=== PATIENT | male | born 1940 | race Caucasian/White ===

== ENCOUNTER 2019-11-02 21:37 | Observation (INO) | payer MEDICARE, MEDICAID, SELFPAY ==
--- NOTE | ~2019-11-02 | CT_ITS ---
EXAMINATION: CT brain wo con EXAM DATE: 11/02/2019 22:56 INDICATION: Fever. Altered mental status. TECHNIQUE: Spiral CT of the head was performed without contrast. Axial, coronal and sagittal images were reviewed. The dose-length product (DLP) for this examination was 908.00 mGy-cm. The exposure w as tailored according to patient size, and iterative reconstruction (ASIR) was used as additional dos e reduction technique. Comparison is made to prior examination from 05/16/2019. FINDINGS: Study is limited due to patient motion. There is no acute intraparenchymal hemorrhage. No evidence of intraparenchymal brain mass lesion. No evidence of acute infarction. Please note that initial head CT has limited sensitivity for small or acute infarctions. There is mild periventricular and subcortical hypodensity, nonspecific but probably related to small vessel ischemic disease. Th ere is mild to moderate prominence of the sulci and ventricles related to cerebral atrophy. There i s intracranial carotid arteriosclerosis. There are no extra-axial collections. There is no mass eff ect or midline shift. The orbits are unremarkable. Soft tissue is unremarkable. The visualized sin uses and mastoid air cells are well aerated. IMPRESSION: 1. Limited exam, but no acute hemorrhage suspected. 2. Chronic age related findings. Reviewed, dictated and finalized at location B. DER OPERATOR AUTOMATIC
--- NOTE | ~2019-11-02 | CT_ITS ---
EXAMINATION: CT pelvis w con EXAM DATE: 11/02/2019 22:57 INDICATION: Buttock sores. Fever. TECHNIQUE: Spiral CT pelvis w con was performed following intravenous injection of 100 mL Omnipaque 3 50. Axial, coronal and sagittal images were reviewed. The dose-length product (DLP) for this examin ation was 1531.92 mGy-cm. The exposure was tailored according to patient size (auto mA exposure cont rol), and iterative reconstruction (ASIR) was used as additional dose reduction technique. Comparison is made to prior examination from 11/15/2017. FINDINGS: There is a Vance catheter within a collapsed bladder. There are inguinal and pelvic lymph n odes with fatty rosalia, consistent with reactive etiology. There is moderate aortoiliac arterial sclero tic disease. Normal appendix. Bowel unremarkable. Portions of the upper thighs laterally were out of field of view and not imaged. Mild prepubic. Mild prepubic fat stranding, possible mild penis and scr otal, left medial thigh skin thickening, cellulitis? No abscess. There are no bony erosions identifie d. IMPRESSION: 1. Clinical correlation for possible penis/scrotal and inner thigh cellulitis. 2. Some reactive pelvic lymph nodes. Reviewed, dictated and finalized at location B. CTOR OF HEALTH EDUCATION
--- NOTE | ~2019-11-02 | XR_ITS ---
EXAMINATION: XR chest 2V DATE: 11/02/2019 22:39 INDICATION: Transient alteration of awareness TECHNIQUE: frontal and lateral views of the chest were obtained. COMPARISON: Chest radiograph dated 11/01/2018 FINDINGS: Evaluation somewhat limited by body habitus. No focal airspace opacities, pulmonary edema, pleural ef fusion or pneumothorax. The cardiomediastinal silhouette is normal. 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 IMPRESSION: 1. No acute cardiopulmonary disease. Reviewed, dictated and finalized at location A. STANT CROSS COUNTRY COACH
[2019-11-02 21:37] VITALS: BP 99/67; PULSE 73; RESP 15; TEMP 36.2; O2SAT 94
--- NOTE | 2019-11-02 21:42 | ED.AMS ---
HPI - Altered Mental Status General Chief Complaint: Altered Mental Status Stated Complaint: fever/ leg wound Time Seen by Provider: 11/02/19 21:43 Source: EMS and RN notes reviewed Mode of arrival: EMS Limitations: altered mental status History of Present Illness HPI narrative: Pt is a 79 y/o male who presents to the ED, via EMS from [facility], with c/o AMS with an unknown onset. EMS was at bedside and provided the information. EMS was called for the pt's 104 degree fever. Pt is oriented x1. Normal for patient is oriented to person and place. EMS states the pt is normally alert and oriented x3. Pt has a hx of UTI. Pt became grumpy after EMS got him out of his wheelchair. EMS states the pt is in A-fib with PVCs present. Pt's blood glucose was 149 at the scene. Pt was given Tylenol prior to EMS being called. HPI is limited due to pt's AMS. Pt is a DNR. MD complaint: altered mental status Onset (ago): unknown Consistency of symptoms: constant Associated symptoms: denies other symptoms and other (limited due to pt's AMS) Related Data Allergies Allergy/AdvReac Type Severity Reaction Status Date / Time corn Allergy Mild Unknown Verified 05/06/19 03:53 pollen extracts Allergy Mild Other Verified 05/06/19 03:53 Review of Systems Review of Systems: Narrative: NEUROLOGIC: AMS ROS unobtainable: other (limited due to pt's AMS) [facility] Past Medical History Medical History (Updated 11/03/19 @ 00:17 by Nina Gonzalez MD) A-fib Anemia Arthritis Asthma Cellulitis of left leg CHF (congestive heart failure) COPD (chronic obstructive pulmonary disease) Cyst on neck DNR (do not resuscitate) DVT (deep venous thrombosis) in RLE Finger fracture, left left 3rd digit GERD (gastroesophageal reflux disease) History of angina HTN (hypertension) Hyperlipidemia SUZI (obstructive sleep apnea) Peripheral neuropathy Pneumonia Type II diabetes mellitus Ulcer UTI (urinary tract infection) Surgical History Surgical History (Updated 11/02/19 @ 22:03 by Maia Meehan) H/O removal of cyst History of cardiac catheterization x4 Social History Social History (Updated 11/02/19 @ 22:04 by Maia Meehan) Smoking status: Unknown if ever smoked Exam Narrative: Exam Narrative: GENERAL: Awake, alert, repeatedly saying damnit HEAD: Normocephalic, atraumatic. EYES: PERRLA and EOMI. ENT: Nares clear, no rhinorrhea or epistaxis. Mucous membranes dry NECK: Supple. CHEST: Clear to auscultation. No respiratory distress. HEART: Regular rate and rhythm. No murmur heard. Normal peripheral pulses. ABDOMEN: Soft, nontender, nondistended, normal active bowel sounds. Nontender abdominal wall hernia. EXTREMITIES: Normal range of motion. Mild pitting edema to shins bilaterally. Wound to left posterior thigh that is erythmatous and tender. Mild excoriate with no purulent drainage. No crepitus. No blisters. No bullae. No ecchymoses. SKIN: Erythema of the bilateral buttocks, is excoriation into buttocks, skin breakdown, stage II ulceration NEURO: No focal deficits. Awake, alert, and oriented to person. Course Consultations Consultation #1: Phone call with nurse directory at [facility]. States pt has not had any visitors recently. Date: 11/02/19 Time: 23:45 Consultation #2: Discussed case with Dr. Grant (PCP). Pt is a poorly compliant diabetic. Pt is a DNR and does not have any immediate family. Date: 11/02/19 Time: 23:50 Consultation #3: Discussed case with MOISÉS Gerardo (Hospitalist). Accepts admission. Date: 11/02/19 Time: 23:55 Additional Consultation(s): 11/03/19 00:03 Phone call with Seymour Pantoja (Coworker of patient). Does not feel comfortable making medical decisions for the patient. 11/03/19 00:06 Phone call with Zoran Sanchez (Cousin of patient). Does not feel comfortable making medical decisions for the patient. States honor DNR. Vital Signs Vital signs: Vital Signs Temperature 36.2 C L 11/02/19 21:37 P
--- NOTE | 2019-11-02 21:49 | ECG_ITS ---
Measurements Intervals [place] Rate: 85 P: VA: 0 QRS: -57 QRSD: 109 T: 69 QT: 378 QTc: 450 Interpretive Statements ATRIAL FIBRILLATION LEFT AXIS DEVIATION ANTEROSEPTAL INFARCT, AGE INDETERMINATE BORDERLINE ST-T WAVE ABNORMALITY- LATERAL LEADS BASELINE WANDER- I ABNORMAL ECG Electronically Signed On 11-03-2019 7:13:06 PLANT TENDER by Dave Harrington D.O.
[2019-11-02 21:50] VITALS: BP 101/56; PULSE 91; RESP 22; O2SAT 97
[2019-11-02] MEDS: SODIUM CHLORIDE 0.9% IV 2,000 ML 999 ML IV CONT (22:02)
[2019-11-02 22:03] LABS: Glucose Point of Care 244 (65-105)
[2019-11-02 22:13] LABS: Hematocrit 37.6 % (42.0-52.0); Hemoglobin 12.1 g/dL (14.0-18.0); Mean Corpuscular HGB Conc 32.2 g/dl (32-36); Mean Corpuscular Hemoglobin 29.4 pg (26-34); Mean Corpuscular Volume 91.5 fl (80-100); Red Blood Count 4.11 M/mm3 (4.6-6.20); White Blood Count 17.3 K/mm3 (4.5-10.0)
[2019-11-02 22:23] LABS: INR 2.5; Prothrombin Time 26.2 Seconds (11.1-14.7); Total Cells Counted 100
[2019-11-02 22:24] LABS: Band Neutrophils Percent 25 % (0-6); Lymphocytes Absolute Manual 0.17 K/mm3 (1.1-4.5); Lymphocytes Percent Manual 1 % (18-44); Monocytes Absolute Manual 0.34 K/mm3 (0.1-0.90); Monocytes Percent Manual 2 % (3-9); Neutrophils Absolute Manual 16.78 K/mm3 (1.3-6.7); Neutrophils Percent Manual 72 % (46-73); Partial Thromboplastin Time 45.1 SECONDS (22.3-36.8); Platelet Clumps Present; Platelet Estimate Adequate (Adequate)
[2019-11-02 22:25] LABS: Lactic Acid Reflex 4.9 mmol/L (0.7-2.1)
[2019-11-02 22:26] LABS: Alkaline Phosphatase 105 U/L (38-126); Aspartate Amino Transferase 34 U/L (17-59); Bilirubin,Total 0.7 mg/dL (0.2-1.3); Blood Urea Nitrogen 31 mg/dL (9-20); Calcium 8.9 mg/dL (8.4-10.2); Carbon Dioxide 21 mmol/L (22-30); Chloride 88 mmol/L (98-107); Creatine Kinase 34 U/L (55-170); Estimated CRCL calculation 36 ml/min; Estimated Glomerular Filt Rate 31; Glucose 247 mg/dL (75-110); Sodium 130 mmol/L (137-145)
[2019-11-02 22:33] LABS: Alanine Aminotransferase 23 U/L (4-50)
[2019-11-02 22:36] LABS: Add Urine Microscopic? YES; Appearance Urine Cloudy (Clear); Bacteria Urine Trace /hpf; Bilirubin Urine Negative (Negative); Blood Urine 3+ (Negative); Color Urine Amber (Yellow); Glucose Urine UA Negative (Negative); Hyaline Casts Urine 20-29 /lpf; Ketones Urine Negative (Negative); Leukocyte Esterase Ur 3+ LEU/UL (Negative); Nitrate Urine Negative (Negative); Protein Urine 2+ mg/dL (Negative); RBC Urine >75 /hpf (0-2); Specific Grav Ur 1.013 (1.001-1.035); Squamous Epithelial Cell Urine Occasional /hpf (Few); WBC Clumps Urine Present /HPF; WBC Urine >75 /hpf
[2019-11-02 22:37] LABS: Troponin I 0.022 ng/mL (0.000-0.034)
[2019-11-02 22:41] LABS: Ammonia < 9 umol/L (9-30)
--- NOTE | 2019-11-02 23:02 | PC.NURSE ---
Patient in CT, meds will be given upon return. Tylenol not given, patient received Tylenol at [facility] prior to transport here.
[2019-11-02 23:05] VITALS: BP 93/73; PULSE 61; RESP 23; O2SAT 99
[2019-11-02 23:20] VITALS: BP 68/56; PULSE 65; RESP 22; O2SAT 97
[2019-11-02] MEDS: SODIUM CHLORIDE 0.9% IV 1,000 ML 999 ML (23:29)
--- NOTE | 2019-11-02 23:29 | PC.NURSE ---
0- Dr Gonzalez aware of patient's BP, 3rd liter NS daniel.
[2019-11-02 23:31] VITALS: BP 64/36; PULSE 72; RESP 28; O2SAT 96
--- NOTE | 2019-11-02 23:37 | PC.NURSE ---
Patient's BP remains 60's systolic despite running 3L NS. EDP aware. Paper work shows patient is a DNR with comfort measures. No family contacts on chart. Spoke with Elizabeth at [phone] from [facility], reports patient is his own POA and patient has no family.
[2019-11-02] MEDS: NOREPINEPHRINE 8 MG/D5W 250 ML 8 MG/250 ML BAG 9.4 MG IV CONT (23:53)
--- NOTE | 2019-11-02 23:53 | PC.NURSE ---
Patient's Levo initiated through his 18G RA peripheral IV per verbal order from Dr Gonzalez. Patient resting on stretcher. Remains aox1-2. Denies any questions.
[2019-11-02 23:55] VITALS: BP 60/38; PULSE 59; RESP 22; O2SAT 94
[2019-11-03] VITALS (7 sets, daily range): BP systolic 65–102; BP diastolic 41–73; PULSE 46–66; RESP 18–30; TEMP 35.3–36.9; O2SAT 93–100; BMI 38.4; BMI 40.4
--- NOTE | 2019-11-03 00:09 | PC.NURSE ---
Dr Gonzalez spoke with the two contacts on chart, both stated they would not make medical decisions for the patient. Dr Gonzalez spoke with Dr Grant, stated he would not recommend medical life saving interventions. Patient's Levophed turned off per verbal order from Dr Gonzalez.
--- NOTE | 2019-11-03 00:39 | PC.NURSE ---
Patient given Fentanyl 50mcg IVP per order from Dr Gonzalez.
[2019-11-03 01:11] LABS: Reflex Lactic Acid Yes or No Add Lactic
--- NOTE | 2019-11-03 01:43 | ADMGEN ---
This patient, Walter Salazar, was admitted to [facility] Surg Room 325-01. Patient/family oriented to hospital policies and general routines including ID bracelet, bed and alarms, visiting hours, pain management, procedures, bathroom and other care routines, personal items, smoking policy, room service/diet, and visiting hours. Valuables list has been completed. Information on how to activate the Rapid Response Team has been discussed. Patient/Family are encouraged to report perceived risks to care and to ask questions if they do not understand what they are told or what they should do.
[2019-11-03 02:29] LABS: Lactic Acid 4.2 mmol/L (0.7-2.1)
[2019-11-03 02:48] LABS: Blood Urea Nitrogen 30 mg/dL (9-20); Carbon Dioxide 22 mmol/L (22-30); Chloride 90 mmol/L (98-107); Estimated CRCL calculation 37 ml/min; Estimated Glomerular Filt Rate 29; Glucose 244 mg/dL (75-110); Potassium 4.4 mmol/L (3.4-5.0); Sodium 130 mmol/L (137-145)
[2019-11-03] MEDS: SODIUM CHLORIDE 0.9% IV 1,000 ML 999 ML IV CONT (03:30)
[2019-11-03] MEDS: LACTATED RINGERS 1,000 ML 125 ML IV CONT (04:53)
--- NOTE | 2019-11-03 06:11 | PM.IMHP ---
H&P: HPI History of Present Illness Chief complaint: septic shock uti delirium Narrative: Walter Salazar is a 79 year old male with a past medical history of dementia, AFib, diabetes and hypertension who presented emergency room from [facility] due to altered mental status with 104 fever. Patient has a chronic indwelling catheter which had dark foul-smelling urine in it and known mild bedsores. Although the patient has dementia, he was able to answer my questions appropriately and follow commands. He states that he does not know why he is in hospital and is currently in no pain. He said he has occasional back pain but thinks it is from the bed and it was better after repositioning. He admits to some dysuria but denies any pain down in the catheter site at this current time. He is currently requesting a soda as his mouth is very dry. He denies chest pain, cough, shortness of breath, chills, diarrhea, abdominal pain, aches and pains, wounds, or rashes that he knows of. He was able to go over his medical history with me but unsure about his medications or specific details of his past. He says that he would like to remain a DNR and when I explained what pressors were he said hell no and was not interested in those. He says he has no family or power of assistant prosecuting attorney and would not like to make anyone a surrogate decision maker. Although he was alert and oriented to himself only, he was able to correctly answer my questions. He said that he was diagnosed with sleep apnea but does not like to wear the BiPAP. He confirmed past medical history DVTs, AFib, and diabetes. Overall, he says he feels weak and has no pain to report today. Review of Systems Review of Systems: All systems reviewed & are unremarkable except as noted in HPI and below PMFSH Past Medical History Medical History A-fib Anemia Arthritis Asthma Cellulitis of left leg CHF (congestive heart failure) COPD (chronic obstructive pulmonary disease) Cyst on neck DNR (do not resuscitate) DVT (deep venous thrombosis) in RLE Finger fracture, left left 3rd digit GERD (gastroesophageal reflux disease) History of angina HTN (hypertension) Hyperlipidemia SUZI (obstructive sleep apnea) Peripheral neuropathy Pneumonia Type II diabetes mellitus Ulcer UTI (urinary tract infection) Surgical History Surgical History H/O removal of cyst History of cardiac catheterization x4 Family History Family History (Updated 11/03/19 @ 06:21 by iTana Mckee PA-C) Mother Lung cancer Father , in [place] No problems noted. Other Unknown family medical history Social History Social History (Updated 11/03/19 @ 06:22 by Tiana Mckee PA-C) Social History: Patient states that he current lives at [facility]. He does not smoke or drink. He used to drink alcohol when he was younger but has not done so since being there. He could not remember what he did for a living but past medical records show that he worked at: And had various other jobs. As stated above he has no [id number] and does not want to list a surrogate decision maker. He would like DNR with no pressors. Smoking status: Unknown if ever smoked Alcohol intake: unknown Substance use: unknown Gender identity (if verbalized by the patient): Male Meds Home Medications and Allergies Home Medications Medication Instructions Recorded Confirmed Type Novolog Flexpen U-100 Insulin See Rx Instructions .ROUTE .COMPLEX 11/03/19 11/03/19 History acetaminophen 650 mg PO PRN PRN 11/03/19 11/03/19 History atorvastatin 10 mg PO HS 11/03/19 11/03/19 History cetirizine 10 mg PO DAILY PRN 11/03/19 11/03/19 History cyanocobalamin (vitamin B-12) 1,000 mcg PO DAILY 11/03/19 11/03/19 History [B-12 DOTS] furosemide 40 mg PO BID 11/03/19 11/03/19 History insulin aspart U-
[2019-11-03 06:39] LABS: Hematocrit 37.6 % (42.0-52.0); Hemoglobin 11.5 g/dL (14.0-18.0); Mean Corpuscular HGB Conc 30.6 g/dl (32-36); Mean Corpuscular Hemoglobin 29.6 pg (26-34); Mean Corpuscular Volume 96.9 fl (80-100); Mean Platelet Volume 11.1 fl (7.4-10.4); Platelet Count Result 323 k/mm3 (150-375); Red Blood Count 3.88 M/mm3 (4.6-6.20); Red Cell Distribution Width 16.5 % (11.5-14.5); White Blood Count 46.1 K/mm3 (4.5-10.0)
[2019-11-03 07:04] LABS: Anisocytosis 1+ (NORMAL); Band Neutrophils Percent 24 % (0-6); Crenated RBC 1+ (NORMAL); Lymphocytes Absolute Manual 2.76 K/mm3 (1.1-4.5); Metamyelocytes Percent 7 %; Monocytes Percent Manual 5 % (3-9); Neutrophils Percent Manual 58 % (46-73); Platelet Estimate Adequate (Adequate); Total Cells Counted 100
[2019-11-03 07:05] LABS: Polychromasia 1+ (NORMAL); Tear Drop Cells 1+ (NORMAL)
[2019-11-03 07:13] LABS: Lactic Acid Reflex 13.6 mmol/L (0.7-2.1)
--- NOTE | 2019-11-03 07:54 | PM.DDS ---
Discharge Sum: Prov Provider Primary care physician: Zhang Grant MD Admitting provider: Giovanny Snow MD Attending physician on admission: Tiana Mckee Consults: 11/03/19 Wound/ET Consult Routine Reason for Consult:: right thigh, sacrum Discharge Sum: Diag Contributing Factors (1) Septic shock: (2) Acute UTI: (3) HUMA (acute kidney injury): (4) Acute metabolic encephalopathy: (5) Chronic wound of extremity: (6) History of DVT (deep vein thrombosis): (7) Pulmonary edema: (8) Dementia: (9) Chronic anemia: Discharge Sum: Summary Date and Time Date of admission: 11/03/19 00:33 Date of : 11/03/19 Time of : 07:50 Summary Details: Patient is a 79-year-old male who presented the emergency room for confusion, fevers found to be UTI septic shock. He had substantial hypotension and elevated lactic acid. IV resuscitation was started as well as IV antibiotics. Per documentation he had a DNR order and no immediate family or power of attorney recruiter. They called his cousin and a friend who was a point of contact in the past. The friend did not want to make any decisions and the cousin set up hold the DNR with no pressors. Patient was started on ceftriaxone and vancomycin admitted to the hospitalist service where I saw him at 4:30 a.m. in the morning. The patient at that time was alert and oriented to himself and birthday and able to a hold conversation and understood all my questions. I discussed the severity of his case with him and he said that he would not want any CPR or pressors as well. Although he was not alert and oriented x4, it appeared that he was making conscious decisions. He confirmed all of his past medical history in detail as stated in H&P. The patient did have cold extremities at the time my exam but he had improving mental status and an appetite and actually requested a soda and drank the whole thing without issue. Routine labs were redrawn which showed worsened white blood cell count and lactic acid of 13. Around 730 the nurse notified me that he did not have a pulse or respirations and he had passed. I went up and saw the patient and this was confirmed. I notified my supervising physician Dr. Michael Tom. Additional Data Confirmation of as documented by pronouncing clinician: no pulse, no respirations, no heart sounds and pupils fixed and dilated Family: not available Attending/PCP notified?: Yes Attending physician: JULIANO Brand Dr. Was code activated?: No Autopsy requested?: No Hospice patient?: No
[2019-11-03 07:55] LABS: Albumin Level 3.5 g/dL (3.5-5.1); Alkaline Phosphatase 72 U/L (38-126); Aspartate Amino Transferase 84 U/L (17-59); Bilirubin,Total 1.4 mg/dL (0.2-1.3); Blood Urea Nitrogen 28 mg/dL (9-20); Calcium 8.2 mg/dL (8.4-10.2); Carbon Dioxide 9 mmol/L (22-30); Chloride 92 mmol/L (98-107); Estimated CRCL calculation 27 ml/min; Estimated Glomerular Filt Rate 20; Glucose 393 mg/dL (75-110); Potassium 6.2 mmol/L (3.4-5.0); Sodium 132 mmol/L (137-145)
[2019-11-03 08:37] LABS: Alanine Aminotransferase 49 U/L (4-50)
--- NOTE | 2019-11-03 10:03 | PC.NURSE ---
Unable to notify next of kin as additional names/numbers not available. Previously notified contacts declined to be involved in patient care. Working with Luiza Medrano- Sales Product Manager Chauffeur and Floresita Bradley to reach additional contacts for notification and patient disposition.
--- NOTE | 2019-11-03 10:20 | PC.NURSE ---
Contact Otf Loera - cousin reached at [phone]. Directed to release body to [facility] in [place].
--- NOTE | 2019-11-03 12:19 | PCCCNOTE ---
Received call this morning from Monique Molina regarding the need to find family for patient. Both of his contacts were called from the ED (Zoran Sanchez and Seymour Pantoja)and they both indicated that they would not be willing to be contacts for this patient. I spoke with Lavern, Quality Control Inspector at [facility]. She reports that he pt. has no immediate family, but does have a relative named Denise who works there. They then called back and said that Otf Loera, one of patients cousins, would be next appropriate contact. Spoke with Otf at [phone]. He reports that patient was never and has no children. He has siblings who are elderly and cousins, but that is the extent of his family, per Otf's knowledge. Per Otf, he is trying to make contact with other relatives, but directed that body should be released to [facility].
== END 2019-11-03 07:50 | disposition expired ==
LOC: ANHED 11-03 00:17 → ANH3MEDSUR 11-03 00:41
PROVIDERS: Physician Assistant; Admitting Provider Internal Medicine; Emergency Provider Emergency Medicine; PCP Family Medicine; Visit Provider Physician Assistant
DX: T83.511A Infection and inflammatory reaction due to indwelling urethral catheter, initial encounter (principal); A41.9 Sepsis, unspecified organism; N39.0 Urinary tract infection, site not specified; R65.21 Severe sepsis with septic shock; G93.41 Metabolic encephalopathy; N17.9 Acute kidney failure, unspecified; Z66 Do not resuscitate; S71.101A Unspecified open wound, right thigh, initial encounter; I11.0 Hypertensive heart disease with heart failure; I50.1 Left ventricular failure, unspecified; F03.90 Unspecified dementia, unspecified severity, without behavioral disturbance, psychotic disturbance, mood disturbance, and anxiety; D64.9 Anemia, unspecified; E11.42 Type 2 diabetes mellitus with diabetic polyneuropathy; I48.91 Unspecified atrial fibrillation; J44.9 Chronic obstructive pulmonary disease, unspecified; G47.33 Obstructive sleep apnea (adult) (pediatric); E78.5 Hyperlipidemia, unspecified; Z79.4 Long term (current) use of insulin; Z79.899 Other long term (current) drug therapy; Z86.718 Personal history of other venous thrombosis and embolism
CPT/HCPCS: 36415; 70450; 71046; 72193; 80048; 80053; 81001; 82140; 82550; 82948; 83605; 84443; 84484; 85025; 85610; 85730; 87040; 87076; 87077; 87081; 87086; 87088; 87186; 87804; 93005; 96361; 96365; 96367; 96375; 99285; C1751; G0378; J0696; J3010; J3370; J7030; J7060; J7120; Q9967